=== PATIENT | female | born 2000 | race American Indian/Alaskan Native ===

== ENCOUNTER 2020-07-25 08:38 | Emergency (ER) | payer MEDICAID ==
[2020-07-25 10:15] LABS: Bilirubin,Urine NEG (Negative); Blood,Urine NEG (Negative); Color,Urine Red (Yellow); Mucus,Urine 3+ /HPF
[2020-07-25 10:16] LABS: HCG Qualitative,Urine Positive (Negative)
--- NOTE | 2020-07-25 10:52 | Emergency Department Report ---
ED Dysuria HPI - HPI Chief Complaint: Abdominal Pain Stated Complaint: NOT FEELING GOOD Time Seen by Provider: 07/25/20 09:55 Duration: 2 Days Location of Discomfort: Other Severity: Mild Symptoms: Dysuria: No, Frequency: No, Suprapubic Pain: No, Flank Pain: No, Fever: No, Hematuria: No, Abdominal Pain: No, Previous UTI's: No Other History: This is a 19-year-old female -0-0-1 who presents the ED today stating that she took a test at home yesterday and was positive. Patient states that she presents here for evaluation and confirmation. Patient states that last menstrual period was early June cannot remember the exact date. Patient denies vaginal bleeding, dysuria, vaginal pain or any other medical problems. ED Review of Systems ROS: Stated complaint: NOT FEELING GOOD Other details as noted in HPI Comment: All other systems reviewed and negative ED Past Medical Hx - Past Medical History Previous Medical History?: No - Surgical History Past Surgical History?: No - Medications Home Medications: Home Medications Medication Instructions Recorded Confirmed Last Taken Type Vit-Fe Fumar-FA [ 1 tab PO QDAY #30 tablet 07/25/20 Unknown Rx Vitamin] Dysuria Exam - Exam General: Vital signs noted. No distress. Alert and acting appropriately. Exam: Yes Moist Mucous Membranes, No CVA Tenderness, No Abdominal Tenderness, No Rigidity or Guarding Labs: Lab Results 07/25/20 Range/Units 09:26 Urine Color Red (Yellow) Urine Turbidity Turbid (Clear) Urine pH 6.0 (5.0-7.0) Ur Specific [place] 1.024 (1.003-1.030) Urine Protein 30 mg/dl (Negative) mg/dL Urine Glucose (UA) Neg (Negative) mg/dL Urine Ketones Neg (Negative) mg/dL Urine Blood Neg (Negative) Urine Nitrite Neg (Negative) Urine Bilirubin Neg (Negative) Urine Urobilinogen 4.0 (<2.0) mg/dL Ur Leukocyte Esterase Tr (Negative) Urine WBC (Auto) 3.0 (0.0-6.0) /HPF Urine RBC (Auto) 1.0 (0.0-6.0) /HPF U Epithel Cells (Auto) 33.0 H (0-13.0) /HPF Urine Mucus 3+ /HPF Urine HCG, Qual Positive A (Negative) ED Medical Decision Making - Medical Decision Making This 19-year-old female presents with positive test. Urinalysis negative, test was positive. Reiterated patient to follow-up with [facility]. Referrals given. Patient was not having any distress or any tenderness in the pelvic or abdomen. Patient reports that she just wants a proof of to take to her family so that they know she is . Discussed vitamins with the patient. And increase hydration. Critical care attestation.: If time is entered above; I have spent that time in minutes in the direct care of this critically ill patient, excluding procedure time. ED Disposition Clinical Impression: test positive, Early stage of Disposition: DC- TO HOME OR SELFCARE Is pt being admited?: No Does the pt Need Aspirin: No Condition: Stable Instructions: Abdominal Pain (ED), First Trimester of , [id number] Additional Instructions: Make sure to follow up with the TEST [facility] as discussed. Take all your medications as discussed Increase hydration to 8 to 10 glasses of water per day If you have any worsening symptoms or develop new symptoms please return to ED immediately. Prescriptions: Vit-Fe Fumar-FA [ Vitamin] 1 tab PO QDAY #30 tablet Referrals: JEREMÍAS SNOW CNM [Staff Physician] - 3-5 Days MACIEJ VIDES MD [Staff Physician] - 3-5 Days YVONNE ERIC MD [Staff Physician] - 3-5 Days Forms: Work/School Release Form(ED) Time of Disposition: 10:56
== END 2020-07-25 11:20 | disposition home or self-care (01) ==
LOC: ED 08:38
DX: Z34.91 Encounter for supervision of normal pregnancy, unspecified, first trimester (principal)
CPT/HCPCS: 81001; 81025

== ENCOUNTER 2021-01-18 11:33 | Outpatient (CLI) | payer MEDICAID ==
[2021-01-18 12:04] VITALS: BP 116/70
[2021-01-18] MEDS ORDERED: LACTATED RINGERS 1,000 ML IV NR (12:59)
[2021-01-18] MEDS ORDERED: TERBUTALINE 1 MG/1 ML INJ SUB-Q SCH (13:00)
== END 2021-01-18 13:13 | disposition home or self-care (01) ==
LOC: TRG 11:33 → APU 11:35 → TRG 13:13
PROVIDERS: ATTEND Obstetrics & Gynecology
DX: Z34.93 Encounter for supervision of normal pregnancy, unspecified, third trimester (principal); Z3A.34 34 weeks gestation of pregnancy
CPT/HCPCS: 59025